=== PATIENT | male | born 1985 | race Hispanic/Latino ===

== ENCOUNTER 2017-06-16 22:23 | Emergency (ER) ==
[2017-06-16 22:43] LABS: Bilirubin Negative (Negative); Blood, Urine Trace (Negative); Clarity CLOUDY (Clear); Glucose, Urine (Dipstick) Negative (Negative); Leukocyte Moderate (Negative); Nitrite Negative (Negative); Protein, Urine (Dipstick) Negative (Neg-Trace); Specific Gravity, Urine 1.028 (1.002-1.036); Urobilinogen 0.2 mg/dL (0.2-1.0); pH, Urine 5.5 (5.0-9.0)
[2017-06-16 22:45] LABS: Bacteria/HPF None Seen HPF (None Seen); Hyaline Casts/LPF 0-3 HYALINE CAST LPF (0-3 Hyaline); RBC/HPF 0-3 HPF (0-3); Squamous Epithelial None Seen HPF (0-3)
[2017-06-16] MEDS ORDERED: cefTRIAXone\\ROCEPHIN 250 MG VIAL ONE (23:24)
[2017-06-16] MEDS ORDERED: Azithromycin 250 MG TAB ONE (23:24)
[2017-06-16] MEDS ORDERED: Lidocaine 1% PF 5 ML VIAL ONE (23:24)
[2017-06-19 03:55] LABS: Chlamydia by PCR DETECTED (NotDetected); GC by PCR DETECTED (NotDetected)
== END 2017-06-16 23:50 | disposition home or self-care (01) ==
LOC: ERS 22:23
DX: R30.0 Dysuria (principal); F17.210 Nicotine dependence, cigarettes, uncomplicated
CPT/HCPCS: 81003; 81015; 87491; 87591; 96372; J0696; J2001

== ENCOUNTER 2019-04-21 17:11 | Emergency (ER) | payer OTHER, SELFPAY ==
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
[2019-04-21] MEDS ORDERED: Ketorolac Tromethamine 30 MG/ML VIAL ONE (18:13)
[2019-04-21] MEDS ORDERED: Morphine 4 MG/ML VIAL ONE (18:13)
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
== END 2019-04-21 19:42 | disposition home or self-care (01) ==
LOC: ERS 17:11
DX: S50.12XA Contusion of left forearm, initial encounter (principal); M25.512 Pain in left shoulder; F17.210 Nicotine dependence, cigarettes, uncomplicated; V89.2XXA Person injured in unspecified motor-vehicle accident, traffic, initial encounter
CPT/HCPCS: 29125; 71045; 96372; 99284; J1885; J2270

== ENCOUNTER 2019-10-10 11:36 | Emergency (ER) | payer SELFPAY | END 2019-10-10 12:50 | disposition home or self-care (01) | LOC: ERS 11:36 | DX: H66.91 Otitis media, unspecified, right ear (principal); H72.91 Unspecified perforation of tympanic membrane, right ear; F17.210 Nicotine dependence, cigarettes, uncomplicated | CPT/HCPCS: 99282 ==

== ENCOUNTER 2020-01-23 22:24 | Emergency (ER) | payer OTHER, SELFPAY ==
[2020-01-24] MEDS ORDERED: Ketorolac Tromethamine 30 MG/ML VIAL ONE (00:24)
[2020-01-24 00:44] LABS: Bilirubin Negative (Negative); Blood, Urine Negative (Negative); Clarity Clear (Clear); Glucose, Urine (Dipstick) Normal (Negative); Ketone, Urine Negative (Negative); Leukocyte Negative Leu/uL (Negative); Nitrite Negative (Negative); Protein, Urine (Dipstick) Negative (Neg-Trace); Specific Gravity, Urine 1.022 (1.002-1.036); Urobilinogen Normal mg/dL (Less than 2); pH, Urine 7.5 (5.0-9.0)
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
== END 2020-01-24 01:59 | disposition home or self-care (01) ==
LOC: ERS 22:24
DX: S16.1XXA Strain of muscle, fascia and tendon at neck level, initial encounter (principal); S13.4XXA Sprain of ligaments of cervical spine, initial encounter; M54.5 Low back pain; M25.511 Pain in right shoulder; M54.6 Pain in thoracic spine; F17.210 Nicotine dependence, cigarettes, uncomplicated; V43.52XA Car driver injured in collision with other type car in traffic accident, initial encounter
CPT/HCPCS: 72100; 72125; 81003; 96372; J1885

== ENCOUNTER 2024-01-07 02:37 | Emergency (ER) | payer SELFPAY ==
[2024-01-07] MEDS ORDERED: Lidocaine 1% PF 5 ML VIAL ONE (03:11)
[2024-01-07] MEDS ORDERED: cefTRIAXone (ROCEPHIN) 500 MG VIAL ONE (03:11)
[2024-01-07 03:17] LABS: Bacteria/HPF None Seen HPF (None Seen); Bilirubin Negative (Negative); Blood, Urine 3+ (Negative); CAUTI Indications for Culture Dysuria,urgency,freq; Clarity Clear (Clear); Glucose, Urine (Dipstick) Normal (Negative); Ketone, Urine 80 mg/dL (Negative); Leukocyte Negative Leu/uL (Negative); Mucous/LPF Rare LPF (<2+); Nitrite Negative (Negative); Protein, Urine (Dipstick) 30 mg/dL (Neg-Trace); RBC/HPF Greater than 50 HPF (0-3); Specific Gravity, Urine 1.027 (1.002-1.036); Squamous Epithelial None Seen HPF (0-3); Urobilinogen Normal mg/dL (Less than 2); Yeast-Hyphae Rare HPF (None Seen); pH, Urine 5.5 (5.0-9.0)
[2024-01-07 03:20] LABS: Sperm/HPF Rare HPF (None Seen)
[2024-01-07 03:21] LABS: Urine Culture Reflex No No
[2024-01-07 12:42] LABS: Chlam.trachomatis by PCR,Urine Not Detected (NotDetected); GC N.gonorrhoeae PCR,UrineVOID Not Detected (NotDetected)
== END 2024-01-07 03:43 | disposition home or self-care (01) ==
LOC: ERS 02:37
DX: R36.1 Hematospermia (principal); F17.210 Nicotine dependence, cigarettes, uncomplicated
CPT/HCPCS: 81001; 87491; 87591; 96372; 99283; J0696